=== PATIENT | female | born 1985 | race American Indian/Alaskan Native ===

== ENCOUNTER 2019-06-01 23:35 | Emergency (ER) | payer SELFPAY ==
[2019-06-02] MEDS ORDERED: ALBUTEROL 2.5 MG/3 ML NEBU IH ONE (00:39)
[2019-06-02] MEDS ORDERED: IPRATROPIUM 0.02% NEBU 2.5 ML IH ONE (00:39)
--- NOTE | 2019-06-02 00:46 | Emergency Department Report ---
HPI - General Chief Complaint: Adult Asthma Time Seen by Provider: 06/02/19 00:34 - HPI HPI: Room 18 The patient is a 33-year-old female presenting with chief complaint of shortness of breath. The patient states 2 days ago developed a "cold" which includes chest congestion and a cough that is nonproductive. Patient admits to sneezing but denies rhinorrhea. The patient states the cold made her wheeze. The patient states she would take her albuterol nebulizer at home but it only helped momentarily. The patient states [id number] medications have not helped. Patient admits to subjective fever Location: [See above] Duration: [See above] Quality: [See above] Severity: [See above] Timing: [See above] Context: [See above] Modifying factors: [See above] Associated signs and symptoms: [see above] ED Past Medical Hx - Past Medical History Hx Asthma: Yes - Surgical History Past Surgical History?: No - Family History Family history: no significant - Social History Smoking Status: Never Smoker Substance Use Type: None - Medications Home Medications: Home Medications Medication Instructions Recorded Confirmed Last Taken Type Albuterol INH(or & Nicu Only) 2 puff IH QID PRN #8.5 gram 06/02/19 Unknown Rx [ProAir HFA Inhaler] Azithromycin [Zithromax Z-KENDY] 0 mg PO DAILY #6 tab 06/02/19 Unknown Rx Benzonatate [Tessalon Perles] 100 mg PO Q8HR #30 capsule 06/02/19 Unknown Rx HYDROcodone/APAP 5-325 [Alcoa 1 - 2 each PO Q6HR PRN #10 tablet 06/02/19 Unknown Rx 5/325] Prednisone [predniSONE 10 mg 10 mg PO .TAPER #1 tab.ds.pk 06/02/19 Unknown Rx (6-Day Pack, 21 Tabs)] ED Review of Systems ROS: Stated complaint: THO Other details as noted in HPI Constitutional: fever (subjective) Eyes: denies: eye pain ENT: congestion, other (sneezing) Respiratory: cough, wheezing Cardiovascular: denies: chest pain Endocrine: no symptoms reported Gastrointestinal: denies: abdominal pain Genitourinary: denies: dysuria Musculoskeletal: denies: back pain Neurological: denies: headache Physical Exam - Physical Exam Vital Signs: Vital Signs 01/12/20 00:33 Temperature 98.5 F Pulse Rate 125 H Respiratory 20 Rate Blood Pressure 136/66 [Left] O2 Sat by Pulse 94 Oximetry Physical Exam: GENERAL: The patient is well-developed well-nourished female lying on stretcher not appearing to be in acute distress. [] HEENT: Normocephalic. Atraumatic. Extraocular motions are intact. Patient has moist mucous membranes. NECK: Supple. Trachea midline CHEST/LUNGS: Diffuse wheezing. HEART/CARDIOVASCULAR: Regular. There is tachycardia. There is no gallop rub or murmur. ABDOMEN: Abdomen is soft, nontender. Patient has normal bowel sounds. There is no abdominal distention. SKIN: There is no rash. There is no edema. There is no diaphoresis. NEURO: The patient is awake, alert, and oriented. The patient is cooperative. The patient has normal speech MUSCULOSKELETAL: There is no evidence of acute injury. ED Course Vital Signs 06/02/19 00:33 Temperature 98.5 F Pulse Rate 125 H Respiratory 20 Rate Blood Pressure 136/66 [Left] O2 Sat by Pulse 94 Oximetry - Reevaluation(s) Reevaluation #1: 06/02/19 01:31 Patient improving. Still wheezing but more air movement appreciated. Patient is still receiving nebulizer Reevaluation #2: 06/02/19 02:34 Patient sounds improved. She still exhibiting frequent coughing. ED Medical Decision Making - Lab Data Laboratory Tests 06/02/19 Unknown Influenza A (Rapid) Negative Influenza B (Rapid) Negative - Radiology Data Radiology results: report reviewed (chest x-ray), image reviewed (chest x-ray) interpreted by me: Chest x-ray-no focal infiltrates, no pneumothorax [address] [address] XRay Report Signed Patient: BRENDA BARRETO MR#: [id number] : 1985 Acct:[id number] Age/Sex: 33 / F ADM Date: 06/01/19 Loc: ED Attending Dr: Ordering Physician: FERNY DENTON MD Date of Service: 06/02/19 Procedure(s): XR chest 1V ap Accession Number(s): [id number] cc: FERNY DENTON MD Fluoro Time In Minutes: CHEST 1 VIEW 12:42 AM INDICATION / CLINICAL INFORMATION: Cough, shortness of breath and wheezing. COMPARISON: None available. FINDINGS: SUPPORT DEVICES: None. HEART / MEDIASTINUM: The heart size and pulmonary vasculature are normal. LUNGS / PLEURA: No significant pulmonary or pleural abnormality. No pneumothorax. ADDITIONAL FINDINGS: No significant additional findings. IMPRESSION: No acute findings. Signer Name: Freddy Carey MD Signed: 06/02/2019 1:18 AM Workstation Name: [id number] Transcribed By: RT Dictated By: Freddy Carey MD Electronically Authenticated By: Freddy Carey MD Signed Date/Time: 06/02/19117 DD/ 6 TD/TT: - Differential Diagnosis URI, influenza, pneumonia, asthma exacerbation Critical care attestation.: If time is entered above; I have spent that time in minutes in the direct care of this critically ill patient, excluding procedure time. ED Disposition Clinical Impression: URI (upper respiratory infection), Acute asthma exacerbation, Shortness of breath Disposition: - TO HOME OR SELFCARE Is pt being admited?: No Does the pt Need Aspirin: No Condition: Stable Additional Instructions: Return to the emergency department should you develop worsening symptoms, inability to tolerate food or liquids, high fever or any other concerns Prescriptions: HYDROcodone/APAP 5-325 [Alcoa 5/325] 1 - 2 each PO Q6HR PRN #10 tablet PRN Reason: Pain Prednisone [predniSONE 10 mg (6-Day Pack, 21 Tabs)] 10 mg PO .TAPER #1 tab.ds.pk Albuterol INH(or & Nicu Only) [ProAir HFA Inhaler] 2 puff IH QID PRN #8.5 gram PRN Reason: Shortness Of Breath Benzonatate [Tessalon Perles] 100 mg PO Q8HR #30 capsule Azithromycin [Zithromax Z-KENDY] 0 mg PO DAILY #6 tab Referrals: ROMEO MISTRY MD [Staff Physician] - 3-5 Days Time of Disposition: 02:59
--- NOTE | 2019-06-02 01:22 | XRay Report ---
CHEST 1 VIEW 12:42 AM INDICATION / CLINICAL INFORMATION: Cough, shortness of breath and wheezing. COMPARISON: None available. FINDINGS: SUPPORT DEVICES: None. HEART / MEDIASTINUM: The heart size and pulmonary vasculature are normal. LUNGS / PLEURA: No significant pulmonary or pleural abnormality. No pneumothorax. ADDITIONAL FINDINGS: No significant additional findings. IMPRESSION: No acute findings. Signer Name: Freddy Carey MD Signed: 06/02/2019 1:18 AM Workstation Name: [id number]
[2019-06-02] MEDS ORDERED: BENZONATATE 100 MG CAP PO ONE (01:30)
[2019-06-02 02:17] VITALS: BP 117/64
[2019-06-02] MEDS ORDERED: ACETAMINOPHEN 325 MG TAB ONE (03:12)
[2019-06-02] MEDS ORDERED: ACETAMINOPHEN 325 MG TAB PO ONE (03:13)
== END 2019-06-02 03:00 | disposition home or self-care (01) ==
LOC: ED 23:35
DX: J45.21 Mild intermittent asthma with (acute) exacerbation (principal); J06.9 Acute upper respiratory infection, unspecified
CPT/HCPCS: 71045; 87400; 94644

== ENCOUNTER 2020-12-25 16:01 | Outpatient (CLI) | payer OTHER ==
[2020-12-25 17:02] VITALS: BP 86/57
[2020-12-25] MEDS ORDERED: LACTATED RINGERS 1,000 ML IV ONE (19:33)
--- NOTE | 2020-12-26 17:02 | Ultrasound Report ---
US OB limited INDICATION: rule out placenta abruption. TECHNIQUE: COMPARISON: None available. FINDINGS: No lifting or separation of the placenta is seen. Amniotic fluid index measures 12.5 cm. presen tation is cephalic. heart rate measures 1 46 bpm. IMPRESSION: 1. No evidence of placental abruption Signer Name: Adams Maxwell MD Signed: 12/25/2020 5:47 PM Workstation Name: [id number]
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
== END 2020-12-25 20:44 | disposition home or self-care (01) ==
LOC: TRG 16:01 → APU 16:04 → TRG 20:44
DX: O26.893 Other specified pregnancy related conditions, third trimester (principal); R10.9 Unspecified abdominal pain; M54.5 Low back pain; Z3A.32 32 weeks gestation of pregnancy
CPT/HCPCS: 59025; 76815; 76819

== ENCOUNTER 2021-01-24 02:12 | Outpatient (CLI) | payer OTHER ==
[2021-01-24 02:26] VITALS: BP 103/54
[2021-01-24] MEDS ORDERED: LACTATED RINGERS 500 ML IV ONE (02:49)
[2021-01-24] MEDS ORDERED: TERBUTALINE 1 MG/1 ML INJ SUB-Q SCH (03:00)
[2021-01-24] MEDS ORDERED: LACTATED RINGERS 1,000 ML IV SCH (03:00)
== END 2021-01-24 05:18 | disposition home or self-care (01) ==
LOC: TRG 02:12 → APU 02:18 → TRG 05:18
PROVIDERS: ATTEND Obstetrics & Gynecology
DX: O62.9 Abnormality of forces of labor, unspecified (principal); O99.513 Diseases of the respiratory system complicating pregnancy, third trimester; J45.909 Unspecified asthma, uncomplicated; Z3A.36 36 weeks gestation of pregnancy
CPT/HCPCS: 59025; 96360; 96361; 96372; J3105; J7120

== ENCOUNTER 2021-02-06 23:45 | Outpatient (CLI) | payer OTHER ==
[2021-02-07 00:10] VITALS: BP 110/58
[2021-02-07] MEDS ORDERED: LACTATED RINGERS 1,000 ML IV ONE (00:20)
== END 2021-02-07 01:55 | disposition home or self-care (01) ==
LOC: TRG 23:45 → APU 23:51 → TRG 02-07 01:55
PROVIDERS: ATTEND Obstetrics & Gynecology
DX: O62.9 Abnormality of forces of labor, unspecified (principal); Z3A.38 38 weeks gestation of pregnancy
CPT/HCPCS: 36415; 59025; 84112; 96360; J7120

== ENCOUNTER 2021-02-08 00:15 | Inpatient (IN) | payer OTHER ==
[2021-02-08] MEDS ORDERED: LACTATED RINGERS 1,000 ML ONE ×2 (00:47→00:48)
[2021-02-08] MEDS ORDERED: ePHEDrine SULFATE 50 MG/1 ML INJ ONE (00:48)
[2021-02-08] MEDS ORDERED: fentaNYL-BUPIV 2 MCG/ML-0.125% 200 MCG/100 ML BAG EPIDURAL ONE (00:48)
[2021-02-08] MEDS ORDERED: BUTORPHANOL 2 MG/1 ML INJ IV PRN (00:59)
[2021-02-08] MEDS ORDERED: LIDOCAINE (2%) 20 MG/1 ML VIAL 20 ML MDV INFILTRATI ONE (00:59)
[2021-02-08] MEDS ORDERED: miSOPROStol 200 MCG TAB PR PRN (00:59)
[2021-02-08] MEDS ORDERED: OXYTOCIN 10 UNIT/1 ML INJ IM PRN (00:59)
[2021-02-08] MEDS ORDERED: AMPICILLIN/NS 2 GM/100 ML 2 GM/100 ML BAG IV ONE (00:59)
[2021-02-08] MEDS ORDERED: TERBUTALINE 1 MG/1 ML INJ SUB-Q PRN (00:59)
[2021-02-08] MEDS ORDERED: NalbUPHINE 10 MG/1 ML INJ IV PRN ×2 (00:59→02:17)
[2021-02-08] MEDS ORDERED: METHYLERGONOVINE MALEATE 0.2 MG/ML VIAL IM PRN (00:59)
[2021-02-08] MEDS ORDERED: fentaNYL 100 MCG/2 ML INJ IV PRN (00:59)
[2021-02-08] MEDS ORDERED: CARBOPROST TROMETHAMINE 250 MCG/1 ML INJ IM PRN (00:59)
[2021-02-08] MEDS ORDERED: MINERAL OIL 30 ML ORAL LIQD PO PRN (00:59)
[2021-02-08] MEDS ORDERED: ePHEDrine SULFATE 50 MG/1 ML INJ IV PRN ×2 (00:59→02:17)
[2021-02-08] MEDS ORDERED: ACETAMINOPHEN 325 MG TAB PO PRN (00:59)
[2021-02-08] MEDS ORDERED: LOPERAMIDE 2 MG CAP PO PRN (00:59)
[2021-02-08] MEDS ORDERED: OXYTOCIN DRIP 30 UNITS/500 ML BAG IV SCH ×2 (01:00)
[2021-02-08] MEDS: LACTATED RINGERS 1,000 ML IV SCH ×3 (01:31→04:18)
[2021-02-08 01:49] LABS: Hematocrit 28.5 % (30.3-42.9); Hemoglobin 8.7 gm/dl (10.1-14.3); Mean Corpuscular HGB Conc 30 % (30-34); Platelet Count 259 K/mm3 (140-440); Red Blood Count 4.93 M/mm3 (3.65-5.03)
--- NOTE | 2021-02-08 01:56 | History and Physical Report ---
History of Present Illness Date of examination: 02/08/21 Date of admission: 02/08/21 00:59 Chief complaint: Contractions History of present illness: 35 year old presents to L&D with contractions. Patient denies vaginal bleeding. Patient reports active movement. Patient states she received care at [facility] (patient of Afshan Hooker CNM). No records are available. Patient states her EDC is 02/17/21. Patient denies any complications during this . States she has had 2 previous FT vaginal births and one EAB. Patient reports she has asthma (takes Albuterol and Advair). labs and US ordered upon admission. Will request record's from Afshan Hooker CNM when their office opens. Past History Past Medical History: asthma Past Surgical History: other (EAB ) [facility] History: denies: abnormal PAP smear, chlamydia, gonorrhea, hepatitis B, hepatitis C, herpes, HIV, syphilis, trichomonas Family/Genetic History: cancer Social history: lives with family, full code. denies: smoking, alcohol abuse, prescription drug abuse, IV drug use - Obstetrical History Expected Date of Delivery: 02/17/21 Actual Gestation: 38 Week(s) 5 Day(s) : 4 Para: 2 Hx # Term Pregnancies: 2 Number of Pregnancies: 0 Spontaneous Abortions: 0 Induced : 1 Number of Living Children: 1 Medications and Allergies Allergies Allergy/AdvReac Type Severity Reaction Status Date / Time iodine AdvReac Mild Swelling Verified 02/08/21 00:35 Home Medications Medication Instructions Recorded Confirmed Last Taken Type Albuterol Mdi (or & Nicu Only) 2 puff IH QID PRN #8.5 gram 06/02/19 02/08/21 1 Day Ago Rx [ProAir HFA Inhaler] ~02/07/21 Vit-Fe Fumar-FA [ 1 tab PO DAILY 02/08/21 02/08/21 1 Day Ago History Vitamin] ~02/07/21 Active Meds: Active Medications Acetaminophen (Acetaminophen 325 Mg Tab) 650 mg PO Q4H PRN PRN Reason: Pain, Mild (1-3) Butorphanol Tartrate (Butorphanol 2 Mg/1 Ml Inj) 2 mg IV Q2H PRN PRN Reason: Pain , Severe (7-10) Carboprost Tromethamine (Carboprost Tromethamine 250 Mcg/1 Ml Inj) 250 mcg IM ONCE PRN PRN Reason: Uterine Bleeding Ephedrine Sulfate (Ephedrine Sulfate 50 Mg/1 Ml Inj) 10 mg IV Q2M PRN PRN Reason: Hypotension Fentanyl (Fentanyl 100 Mcg/2 Ml Inj) 100 mcg IV Q2H PRN PRN Reason: Pain,Severe (7-10) LABOR PAIN Oxytocin/Sodium Chloride (Pitocin/Ns 30 Unit/500ml) 30 units in 500 mls @ 2 mls/hr IV TITR CARMEN; Protocol Lactated Ringer's (Lactated Ringers) 1,000 mls @ 125 mls/hr IV DIRECT CARMEN Last Admin: 02/08/21 01:31 Dose: 1,200 mls/hr Documented by: Oxytocin/Sodium Chloride (Pitocin/Ns 30 Unit/500ml) 30 units in 500 mls @ 40 mls/hr IV TITR CARMEN; Protocol Ampicillin Sodium (Ampicillin/Ns 2 Gm/100 Ml) 2 gm in 100 mls @ 100 mls/hr IV ONCE ONE; Protocol Stop: 02/08/21 01:58 Ampicillin Sodium (Ampicillin/Ns 1 Gm/50 Ml) 1 gm in 50 mls @ 100 mls/hr IV Q4H CARMEN; Protocol Loperamide HCl (Loperamide 2 Mg Cap) 2 mg PO ONCE PRN PRN Reason: give with Hemabate Methylergonovine Maleate (Methylergonovine Maleate 0.2 Mg/Ml Vial) 0.2 mg IM ONCE PRN PRN Reason: Uterine Bleeding Mineral Oil (Mineral Oil 30 Ml Oral Liqd) 30 ml PO QHS PRN PRN Reason: Constipation Misoprostol (Misoprostol 200 Mcg Tab) 800 mcg UT ONCE PRN PRN Reason: Uterine Bleeding Nalbuphine HCl (Nalbuphine 10 Mg/1 Ml Inj) 10 mg IV Q2H PRN PRN Reason: Pain, Moderate (4-6) Oxytocin (Oxytocin 10 Unit/1 Ml Inj) 10 unit IM ONCE PRN PRN Reason: Uterine Bleeding Terbutaline Sulfate (Terbutaline 1 Mg/1 Ml Inj) 0.25 mg SUB-Q ONCE PRN PRN Reason: Hyperstimulation/Hypertonicity Review of Systems All systems: negative (contractions) - Vital Signs Vital signs: Vital Signs Temp Pulse Resp BP Pulse Ox 98.4 F 100 H 18 114/56 100 09/20/21 01:24 02/08/21 01:24 02/08/21 01:24 02/08/21 01:24 02/08/21 01:24 Temp Pulse Resp BP Pulse Ox 98.4 F 104 H 18 114/56 99 02/08/21 01:24 02/08/21 01:49 02/08/21 01:24 02/08/21 01:24 02/08/21 01:49 - Physical Exam Abdomen: Positive: normal appearance, soft. Negative: distention, tenderness, guarding, rigidity Genitourinary (Female): Positive: normal external genitalia, normal perenium. Negative: perineal/vulvar lesions Vagina: Positive: normal moisture Uterus: Positive: enlarged. Negative: tender Anus/Rectum: Positive: normal perianal skin Extremities: Positive: normal. Negative: tenderness, edema - Obstetrical FHR: category 2 Uterine Contraction Monitor Mode: External Cervical Dilatation: 4 Cervical Effacement Percentage: 80 station: -2 Uterine Contraction Pattern: Regular Uterine Contraction Intensity: Moderate Results Result Diagrams: 02/08/21 01:20 All other labs normal. Assessment and Plan A: at 38 weeks, 5 days gestation. Labor. GBS unknown. No records available. P: Admit. US/ labs. Request records. Continuous EFM. GBS prophylaxis. Epidural if desired.
[2021-02-08 01:58] LABS: Mean Corpuscular Volume 58 fl (79-97); Red Cell Distribution Width 21.1 % (13.2-15.2)
[2021-02-08] MEDS ORDERED: diphenhydrAMINE 50 MG/ML VIAL IV PRN (02:17)
[2021-02-08] MEDS ORDERED: ONDANSETRON 4 MG/2 ML INJ IV PRN (02:17)
[2021-02-08] MEDS ORDERED: LACTATED RINGERS 250 ML IV SOLN IV ONE (02:17)
[2021-02-08] MEDS ORDERED: NALOXONE 2 MG/2 ML INJ IV PRN (02:17)
[2021-02-08 02:22] LABS: Hepatitis C Virus Antibody Non-Reactive (NonReactive)
--- NOTE | 2021-02-08 02:44 | Anesthesia Consultation ---
Anesthesia Consult and Med Hx Date of service: 02/08/21 - Airway Anesthetic Teeth Evaluation: Good ROM Head & Neck: Adequate Mental/Hyoid Distance: Adequate Mallampati Class: Class I Intubation Access Assessment: Good - Pulmonary Exam CTA: Yes - Cardiac Exam Cardiac Exam: RRR - Pre-Operative Health Status ASA Pre-Surgery Classification: ASA2 Proposed Anesthetic Plan: Epidural - Pulmonary Hx Smoking: No Hx Asthma: Yes (last attack 08/2020) Hx Sleep Apnea: No - Cardiovascular System Hx Hypertension: No Hx Heart Attack/AMI: No Hx Angina: No - Central Nervous System Hx Seizures: No Hx Psychiatric Problems: No - Gastrointestinal Hx Gastroesophageal Reflux Disease: No - Endocrine Hx Renal Disease: No Hx Liver Disease: No Hx Insulin Dependent Diabetes: No Hx Non-Insulin Dependent Diabetes: No Hx Hypothyroidism: No Hx Hyperthyroidism: No - Hematic Hx Anemia: No Hx Sickle Cell Disease: Yes (Trait) - Other Systems Hx Alcohol Use: No
--- NOTE | 2021-02-08 02:45 | Progress Note ---
Labor Epidural - Labor Epidural Start Time: 02:26 Stop Time: 02:36 Performed by:: VERONICA WIGGINS Procedure: Patient is requesting epidural for labor and pain. H&P, labs were reviewed. Patient IDed, H&P reviewed, all questions and concerns were answered, and consent was signed. Timeout was performed at bedside. Patient in sitting position. Sterile prep and drape was performed. 3ml of 1% lidocaine skin wheal at L[3]- L [4]. 18-gauge Fluid Stone epidural needle was advanced to loss of resistance with air technique 4.5cm. Negative CSF negative blood. Epidural catheter advanced to [10] centimeters. [negative] Aspiration [negative] test d ose. Sterile dressing applied. Patient tolerated procedure.
[2021-02-08] MEDS ORDERED: fentaNYL-BUPIV 2 MCG/ML-0.125% 200 MCG/100 ML BAG EPIDURAL SCH (03:00)
[2021-02-08] MEDS ORDERED: BETAMET ACET/BETAMET NA PH 6 MG/ML INJ 5 ML MDV IM SCH (04:03)
--- NOTE | 2021-02-08 04:06 | Ultrasound Report ---
ULTRASOUND OBSTETRIC COMPLETE INDICATION / CLINICAL INFORMATION: EDC/EGA, EFW. Clinical Gestational Age (GA) in weeks, days: 38 weeks 5 days TECHNIQUE: Transabdominal. COMPARISON: 12/25/2020. FINDINGS: Single live IUP in cephalic presentation. heart rate measures 122 bpm. MEASUREMENTS: - Biparietal Diameter = 8.5 cm = 34 weeks 2 days - Head Circumference = 29.5 cm = 32 weeks 4 days - Abdominal Circumference = 30 cm = 33 weeks 5 days - Femur Length = 6.9 cm = 35 weeks 1 day - Estimated Weight (in grams, if calculated): 2341 ADDITIONAL FINDINGS: None. AVERAGE ULTRASOUND AGE (AUA) in weeks, days = 34 weeks 0 days IMPRESSION: 1. Single intrauterine with AUA of 34 weeks 0 days. 2. No significant sonographic abnormality. Signer Name: Oswaldo Perry MD Signed: 02/08/2021 4:02 AM Workstation Name: [id number]
[2021-02-08 04:12] LABS: Amphetamine Screen,Urine Negative; Benzodiazepines Screen,Urine Negative; Cannabinoid Screen,Urine Negative; Cocaine Screen,Urine Negative; Methadone Screen,Urine Negative; Opiate Screen,Urine Negative
--- NOTE | 2021-02-08 04:12 | Event Note ---
Date: 02/08/21 US performed at bedside shows EGA 34 weeks with EDC of 03/22/21. This differs from patient's stated EGA of 38 weeks, 5 days and EDC of 02/17/21. records are going to be requested from Afshan Hooker's office when they open this morning but in the meantime no way to know if patient is or if IUGR. Discussed this with patient. Celestone ordered. Consulted Dr. Lino re: this discrepancy in patient's stated EDC and US EDC. Dr. Lino states she agrees with plan to give Celestone. Patient states she has not been to Af[facility]er[facility] for care since September due to having coronavirus during her . Patient is awaiting coronavirus test this morning (order has been put in).
--- NOTE | 2021-02-08 05:44 | Event Note ---
Date: 02/08/21 SVE /-/BBOW.
[2021-02-08] MEDS ORDERED: AMPICILLIN/NS 1 GM/50 ML 1 GM/50 ML BAG IV SCH (06:00)
[2021-02-08] MEDS ORDERED: LANOLIN/ZINC/DIMETHICONE (LANSINOH) 7 GM TP PRN ×2 (07:54)
[2021-02-08] MEDS ORDERED: BENZOCAINE/MENTHOL 20/0.5% TOP SPRAY 56 GM TP PRN (07:54)
[2021-02-08] MEDS ORDERED: diphenhydrAMINE 25 MG CAP PO PRN (07:54)
[2021-02-08] MEDS ORDERED: WITCH HAZEL/ GLYCERIN PAD TP PRN (07:54)
--- NOTE | 2021-02-08 08:01 | Procedure Note ---
OB Delivery Note - Delivery Date of Delivery: 02/08/21 Surgeon: MERCEDEZ HARPER Estimated blood loss: 100cc - Vaginal Delivery presentation: vertex Delivery position: OA Intrapartum events: meconium Delivery induction: none Delivery augmentation: rupture of membranes (at time of delivery) Delivery monitor: external FHT, external uterine Route of delivery: Delivery placenta: spontaneous Delivery cord: 3 umbilical vessels Episiotomy: none Delivery laceration: 1st degree (first degree perineal skid arben, not bleeding and not sutured) Anesthesia: epidural Delivery comments: Spontaneous vaginal delivery at 07:42 of liveborn female over first degree perineal skid arben with apgars of 8/9. Meconium stained amniotic fluid noted with AROM at delivery. No nuchal cord. was atraumatic. Baby placed skin to skin with mom immediately after delivery. Baby dried with warm towels and suctioned with bulb syringe. 3 vessel cord double clamped and cut. Baby taken to radiant warmer for further suctioning; NICU present for delivery. Cord blood obtained. Spontaneous delivery of intact placenta and membranes at 07:45. EBL 100 cc. Pitocin to IV fluids after delivery of placenta. Fundus firm and midline at 2 FB below umbilicus. Small first degree perineal skid arben noted; not bleeding and not repaired. No other lacerations noted. Vaginal sweep negative. Sponge count correct. Baby has not been weighed yet.
[2021-02-08] MEDS: IBUPROFEN 600 MG TAB PO SCH ×2 (10:50→15:28)
[2021-02-08] MEDS: FERROUS SULFATE 325 MG TAB PO SCH ×2 (15:28→21:14)
[2021-02-08] MEDS: DOCUSATE SODIUM 100 MG CAP PO SCH ×2 (15:28→21:14)
[2021-02-08 18:27] LABS: Hematocrit 27.3 % (30.3-42.9); Hemoglobin 8.4 gm/dl (10.1-14.3)
[2021-02-08] MEDS ORDERED: MAGNESIUM HYDROXIDE (MOM) ORAL LIQD UDC PO PRN (21:00)
[2021-02-08] MEDS: HYDROcodone/ACETAMINOPHEN 5-325 MG TAB PO PRN (22:55)
--- NOTE | 2021-02-09 00:50 | Post Anesthesia Evaluation ---
- Post Anesthesia Evaluation Patient Participated: Yes Airway Patent: Yes Stable Respiratory Function: Yes Nausea/Vomiting: No Temp > 96.8F: Yes Pain Manageable: Yes Adequeate Hydration: Yes Anesthesia Complications: No Block Receding Appropriately: Yes Patient on Ventilator: No
[2021-02-09] MEDS: HYDROcodone/ACETAMINOPHEN 5-325 MG TAB PO PRN ×2 (04:29→15:31)
[2021-02-09] MEDS: DOCUSATE SODIUM 100 MG CAP PO SCH (09:28)
[2021-02-09] MEDS: FERROUS SULFATE 325 MG TAB PO SCH (09:28)
[2021-02-09] MEDS ORDERED: FERROUS SULFATE 325 MG TAB PO SCH (10:00)
--- NOTE | 2021-02-09 10:14 | Progress Note ---
Assessment and Plan A: S/P Asymptomatic anemia P: D/C home per pt request Subjective - Subjective Date of service: 02/09/21 Principal diagnosis: s/p Patient reports: appetite normal, voiding normally, pain well controlled, ambul ating normally, other (pt denies sob, fatigue, or dizziness) [place]: doing well, bottle feeding Objective - Vital Signs Latest vital signs: Vital Signs Temp Pulse Resp BP BP Pulse Ox Pulse Ox 02/09/21 09:26 97 02/09/21 08:15 97 02/09/21 04:29 18 02/09/21 00:23 98.3 F 97 H 19 119/67 98 02/08/21 22:55 18 02/08/21 20:30 98.9 F 100 H 19 115/64 98 98 02/08/21 16:45 98.6 F 102 H 18 105/57 98 02/08/21 11:39 98.1 F 93 H 18 97/42 98 02/08/21 10:45 98.3 F 91 H 18 108/56 99 98 02/08/21 10:35 98.3 F Intake and Output 02/08/21 02/09/21 02/09/21 22:59 06:59 14:59 Intake Total 240 Output Total 500 Balance -260 Intake: Intake, Free Water 240 Output: Urine 500 Void 500 Other: Total, Output Amount 500 # Voids Void 1 - Exam Breasts: Present: normal Abdomen: Present: normal appearance, normal bowel sounds Vulva: both: normal Uterus: Present: normal, firm, fundal height below umbilicus Extremities: Present: normal Incision: Present: normal, intact - Labs Labs: Abnormal lab results 02/08/21 02/08/21 Range/Units 09:23 18:06 Hgb 8.4 L (10.1-14.3) gm/dl Hct 27.3 L (30.3-42.9) % Coronavirus (PCR) Positive A (Negative)
[2021-02-09] MEDS: IBUPROFEN 600 MG TAB PO SCH ×2 (11:11→18:41)
--- NOTE | 2021-02-09 13:04 | Discharge Summary ---
Providers - Providers Date of Admission: 02/08/21 00:59 Date of discharge: 02/09/21 Attending physician: LEA CORONADO Primary care physician: LEA CORONADO Hospitalization Reason for admission: active labor, IUP at term Delivery: Episiotomy: none Laceration: 1st degree Incision: normal, intact Other procedures: none complications: none Discharge diagnosis: IUP at term delivered [place] baby: female Hospital course: Pt was admitted to [facility] iin active labor. She had a and was d/c'd home after 24 hr per pt's request. See h&p, delivery summary and pp notes. Condition at discharge: Stable Disposition: HOME / SELF CARE / HOMELESS Plan - Discharge Medications Prescriptions: Ferrous Sulfate [Feosol 325 MG tab] 325 mg PO BID #120 tablet Ibuprofen [Motrin 600 MG tab] 600 mg PO Q6H PRN #30 tablet PRN Reason: Menstrual Cramps - Provider Discharge Summary Activity: routine, no sex for 6 weeks, no heavy lifting 4 weeks, no strenuous exercise Diet: routine Instructions: routine Additional instructions: [] Smoking cessation referral if applicable(refer to patient education folder for contact #) [] Refer to [facility]'s [facility] Booklet Call your doctor immediately for: * Fever > 100.5 * Heavy vaginal bleeding ( >1 pad per hour) * Severe persistent headache * Shortness of breath * Reddened, hot, painful area to leg or breast * Drainage or odor from incision. * Keep incision clean and dry at all times and follow doctor's instructions regarding bathing/showering - Follow up plan Follow up: LEA CORONADO MD [Primary Care Provider] - 6 Weeks
[2021-02-09 21:48] VITALS: BP 107/71
== END 2021-02-09 21:30 | disposition home or self-care (01) | DRG 775 ==
LOC: TRG 00:15 → APU 00:16 → LD 00:59 → TRG 00:59 → OB 11:00
PROVIDERS: ADMIT Obstetrics & Gynecology; ATTEND Obstetrics & Gynecology
PROC: 10E0XZZ Delivery of Products of Conception, External Approach (ICD-10-PCS; principal; 2021-02-08)
PROC: 10907ZC Drainage of Amniotic Fluid, Therapeutic from Products of Conception, Via Natural or Artificial Opening (ICD-10-PCS; 2021-02-08)
PROC: 3E0R3BZ Introduction of Anesthetic Agent into Spinal Canal, Percutaneous Approach (ICD-10-PCS; 2021-02-08)
PROC: 00HU33Z Insertion of Infusion Device into Spinal Canal, Percutaneous Approach (ICD-10-PCS; 2021-02-08)
PROC: 3E0234Z Introduction of Serum, Toxoid and Vaccine into Muscle, Percutaneous Approach (ICD-10-PCS; 2021-02-09)
DX: O99.02 Anemia complicating childbirth (principal); O77.0 Labor and delivery complicated by meconium in amniotic fluid; Z37.0 Single live birth; O99.52 Diseases of the respiratory system complicating childbirth; Z3A.38 38 weeks gestation of pregnancy; J45.909 Unspecified asthma, uncomplicated; D57.3 Sickle-cell trait; O70.0 First degree perineal laceration during delivery; Z20.822 Contact with and (suspected) exposure to COVID-19; O26.893 Other specified pregnancy related conditions, third trimester; Z67.11 Type A blood, Rh negative; D64.9 Anemia, unspecified
CPT/HCPCS: 36415; 59025; 76816; 80307; 83036; 84112; 85014; 85018; 85027; 85461; 86592; 86706; 86762; 86803; 86850; 86900; 86901; 87806; 88307; 96360; G0378; J0290; J0702; J2790; J7120; U0003